=== PATIENT | female | born 1985 | race Caucasian/White ===

== ENCOUNTER 2023-05-02 11:31 | Emergency (ER) | payer SELFPAY ==
[2023-05-02 11:39] VITALS: RESP 18; BMI 21.7
[2023-05-02] MEDS ORDERED: GABAPENTIN 400 MG CAPSULE PO ONE (16:30)
[2023-05-02] MEDS ORDERED: clonazePAM 2 MG TABLET PO ONE (16:30)
[2023-05-02] MEDS ORDERED: BUPRENORPHINE/NALOXONE 8 MG/2 MG FILM PACKET SL ONE (16:30)
[2023-05-02] MEDS ORDERED: BUPRENORPHINE/NALOXONE 8 MG/2 MG FILM PACKET ONE (17:08)
[2023-05-02] MEDS ORDERED: GABAPENTIN 400 MG CAPSULE ONE (17:09)
[2023-05-02] MEDS ORDERED: clonazePAM 2 MG TABLET ONE (17:09)
[2023-05-03 09:40] VITALS: BP 107/62; PULSE 65; TEMP 98.9
== END 2023-05-03 12:20 | disposition home or self-care (01) ==
LOC: JER 11:31
DX: N94.819 Vulvodynia, unspecified (principal); F20.9 Schizophrenia, unspecified
CPT/HCPCS: 84703; 99283-25